=== PATIENT | male | born 1950 | race Caucasian/White ===

== ENCOUNTER 2021-11-10 18:53 | Observation (INO) | payer BLACK LUNG, MEDICARE ==
[~2021-11-10] VITALS: Ht 182.9 cm; Wt 94.3 kg
[2021-11-10 20:41] LABS: HEMOGLOBIN 11.5 gm/dl (14.0-17.5); RED BLOOD COUNT 4.38 M/UL (4.20-5.50); WHITE BLOOD COUNT 5.5 K/UL (4.5-11.0)
[2021-11-10 21:00] LABS: BUN/CREATININE RATIO 36 (0-10)
[2021-11-10] MEDS ORDERED: LOPRESSOR50 MG PO (23:38)
[2021-11-10] MEDS ORDERED: ELIQUIS5 MG PO (23:38)
[2021-11-10] MEDS ORDERED: CRESTOR40 MG PO (23:38)
[2021-11-10] MEDS ORDERED: TRAZODONE HCL50 MG PO (23:39)
[2021-11-10] MEDS ORDERED: GABAPENTIN300 MG PO (23:39)
[2021-11-10] MEDS ORDERED: ASPIRIN81 MG PO (23:40)
[2021-11-10] MEDS ORDERED: PANTOPRAZOLE SO20 MG PO (23:40)
[2021-11-10] MEDS ORDERED: PROAIR HFA8.5 GM INH (23:42)
[2021-11-10] MEDS ORDERED: FARXIGA10 MG PO (23:42)
[2021-11-10] MEDS ORDERED: LOSARTAN POTASS25 MG PO (23:46)
[2021-11-10] MEDS ORDERED: JANUMET 50-5001 EACH PO (23:50)
[2021-11-10] MEDS ORDERED: ROPINIROLE HCL0.5 MG PO (23:53)
--- NOTE | 2021-11-11 05:28 | NUR ---
11/10/21 CRITICAL CK-MB RECIEVED FROM LAB, VALUE TRENDING DOWNWARD FROM PREVIOUS LAB VALUE.
[2021-11-12 06:49] LABS: HEMOGLOBIN 11.8 gm/dl (14.0-17.5); RED BLOOD COUNT 4.51 M/UL (4.20-5.50); WHITE BLOOD COUNT 6.4 K/UL (4.5-11.0)
[2021-11-12 07:04] LABS: BUN/CREATININE RATIO 44 (0-10)
--- NOTE | 2021-11-12 13:23 | NUR ---
PT ROOM AIR 02 [facility] IS 87%.
[2021-11-12] MEDS ORDERED: LEVALBUTER0.63 MG/3 NEB (16:38)
[2021-11-12] MEDS ORDERED: LASIX40 MG PO (16:38)
[2021-11-12] MEDS ORDERED: LOPRESSOR 50 MG50 MG PO ×2 (16:38→16:48)
== END 2021-11-12 18:00 | disposition home or self-care (01) ==
LOC: ER1 18:53 → M/S 21:22 → CDU 21:22 → M/S 23:13
PROVIDERS: Preventive Medicine Occupational Medicine; ADMIT Internal Medicine
DX: I11.0 Hypertensive heart disease with heart failure (principal); I50.33 Acute on chronic diastolic (congestive) heart failure; E11.9 Type 2 diabetes mellitus without complications; I25.10 Atherosclerotic heart disease of native coronary artery without angina pectoris; I48.0 Paroxysmal atrial fibrillation; R09.02 Hypoxemia; R93.89 Abnormal findings on diagnostic imaging of other specified body structures; Z20.822 Contact with and (suspected) exposure to COVID-19; Z87.891 Personal history of nicotine dependence; Z95.5 Presence of coronary angioplasty implant and graft; Z79.01 Long term (current) use of anticoagulants; Z79.899 Other long term (current) drug therapy; Z87.09 Personal history of other diseases of the respiratory system
CPT/HCPCS: 36415; 71045; 80053; 82550; 82553; 82962; 83690; 83874; 83880; 84484; 85025; 86140; 93005; 93308; 94640; 94664; 94760; 99285; G0378; J1940; U0002